=== PATIENT | female | born 1955 | race Caucasian/White ===

== ENCOUNTER → 2017-03-29 | Outpatient (CLI) | payer OTHER ==
[~2017-03-29] MED LIST: ASPIRIN EC325 M1 PO; ASPIRIN81 M2 PO; HYDROCODONE-AP1 EAC6 PO; IMDUR 30 MG TAB30 M1 PO; LISINOPRIL-HCT1 EAC1 PO; METOPROLOL SUCC25 M1 PO; MOBIC15 MG PO; OMEPRAZOLE 20 M20 M1; OMEPRAZOLE40 MG PO; PRAVACHOL40 MG PO; PRAVASTATIN SOD20 MG PO; PROVENTIL HFA6.7 G1; ZESTORETIC 20-1 EAC3 PO
== END ==
LOC: M.MRI 08:20
DX: D35.02 Benign neoplasm of left adrenal gland (principal); K44.9 Diaphragmatic hernia without obstruction or gangrene; M47.896 Other spondylosis, lumbar region; M41.86 Other forms of scoliosis, lumbar region

== ENCOUNTER → 2017-04-13 | Day surgery (SDC) | payer OTHER ==
[2017-04-11 15:12] LABS: HEMATOCRIT 43.5 % (37.0-47.0); MCHC 34.4 g/dL (28.0-37.0); MCV 92.9 fL (80.0-100.0); MPV 8.4 fl. (7.2-11.1); RBC 4.68 mil/uL (4.20-5.00); RDW-CV 13.5 % (10.5-14.5); WBC 7.4 thou/uL (4.0-11.0)
[2017-04-11 15:40] LABS: CALCIUM 9.3 mg/dL (8.5-10.1); CREATININE 0.9 mg/dL (0.6-1.3); POTASSIUM 4.8 mmol/L (3.5-5.1)
[2017-04-11 15:45] LABS: ALBUMIN 3.8 g/dL (3.4-5.0); TOTAL BILIRUBIN 0.3 mg/dL (<0.1-1.0); TOTAL PROTEIN 7.7 g/dL (6.4-8.2)
--- NOTE | 2017-04-14 13:16 | OP ---
[address] [address] OPERATIVE REPORT Name: HI ENCISO Room: [facility]#: [id number] Admission: 04/13/17 Attend Phys: Phuong Hopkins DO Discharge: Date of : 59 Report #: [id number] THIS REPORT FOR: //name// CC: Phuong VINCENTRYAN ECKERTAN DATE OF SERVICE: 04/13/2017 PREPROCEDURE DIAGNOSIS: Right inguinal hernia. POSTPROCEDURE DIAGNOSIS: Right direct inguinal hernia. FINDINGS: A very large right direct inguinal hernia containing fat. There was a tiny indirect inguinal hernia as well. SURGEON: Phuong Hopkins DO COSURGEON: Giovani Cancino, PGY2. BILLING COORDINATOR: Jeff Ocasio PGY1 PROCEDURE PERFORMED: Right direct inguinal hernia repair with mesh. ANESTHESIA: General LMA and local. ESTIMATED BLOOD LOSS: 2. DRAINS: None. SPECIMENS: None. COMPLICATIONS: None. CONDITION: Stable. DISPOSITION: PACU to home. HISTORY OF PRESENT ILLNESS: The patient is a very pleasant 61-year-old female who presented to my office with a complaint of an increasing bulge and pain in the right lower quadrant. She had undergone a CT scan, which was positive for a right inguinal hernia, which was also evident on her exam. She was then consented for a right inguinal hernia repair with mesh. Risks discussed included bleeding, infection, pain, scar formation, injury to bowel or bladder, recurrence of the hernia, mesh complications, requiring explantation and risks of general anesthesia. The patient understood these risks [place] [address] OPERATIVE REPORT Name: HI ENCISO Room: [facility].#: [id number] Admission: 04/13/17 Attend Phys: Phuong Hopkins DO Discharge: Date of : 59 Report #: [id number] PROCEDURE NOTE: The patient was brought to the operating room. She was laid supine on the operating room table. SCDs were placed to bilateral lower extremities. Ancef was given in the perioperative period. General LMA anesthesia was induced by anesthesia without difficulty. Abdomen was prepped and draped in standard sterile fashion. Time-out was performed to verify patient and procedure. We began by marking out the right ASIS and the right pubic tubercle. An incision was marked out between these two structures. 10 mL of 0.5% Marcaine were injected in the area. Incision was made with #15 blade. Cautery was used for hemostasis. Then, using a combination of blunt and cautery dissection, we dissected down until the external abdominal oblique fascia was identified. One vein was identified during our dissection, was doubly clamped and ligated using a 3-0 silk suture. Yianer retractor was placed. The external abdominal oblique was tented between two Christiane clamps and was incised carefully using Metzenbaums taking care to avoid any underlying structures. Then, using very gentle blunt finger dissection, the inferior surface of the external abdominal oblique was cleared of any underlying structures until we reached the pubic tubercle. Pubic tubercle was then cleared of any tissue. We did encounter a very large hernia sac, which appeared to contain incarcerated fat. The fat was cleared away from the round ligament. Round ligament was then doubly clamped and ligated using 0 silk sutures. It was then allowed to fall into the abdomen. A very tiny indirect inguinal hernia containing only a small amount of fat was identified and was easily reintroduced into the abdomen. The remainder of the very large inguinal hernia appeared to be a large direct defect. Once the adhesions were cleared away, it was then able to be completely reduced into the abdomen without difficulty. Of note, the genital branch of genitofemoral nerve was identified and was carefully protected during our dissection. Once the entirety of the hernia sac was reintroduced into the abdomen, the hernia defect was closely inspected, appeared to be approximately 2 x 2 cm, then decided to close this using a Prolene stitch. The hernia defect was closed using 2 interrupted ahrlwi-co-hjvrq stitches of 0 Prolene with excellent approximation of the hernia defect and no further bulging identified. Remainder of the floor of the inguinal canal was carefully inspected, there were no other defects identified. A ProGrip mesh was then brought onto the field, it was cut to fit the floor of the inguinal canal, it was then deployed along the pubic tubercle. It was placed to cover the entirety of the inguinal canal with excellent coverage. Care was taken to avoid our previously identified nerve. The external abdominal oblique fascia was then closed in a running fashion utilizing a 3-0 Vicryl. An additional 10 mL of 0.5% Marcaine were injected in the pubic tubercle and an additional 10 mL along the surface of the external abdominal oblique. The wound was then closed in a layered fashion beginning with Feliberto's fascia, then in deep and superficial fashion using multiple interrupted stitches of 3-0 Vicryl in inverted interrupted fashion. Skin was closed with running 4-0 Monocryl. An additional 10 mL of 0.5% Marcaine were injected in the skin and the last 10 mL were injected one fingerbreadth in front of the [place] [address] OPERATIVE REPORT Name: HI ENCISO Room: [facility]#: [id number] Admission: 04/13/17 Attend Phys: Phuong Hopkins DO Discharge: Date of : 59 Report #: [id number] type fashion. Skin was then cleansed and covered with Mastisol, Steri-Strips, 4 x 4's, and a Tegaderm. The patient was then allowed to awaken from anesthesia, was extubated and transferred to the recovery room with no further difficulties. Counts were correct at the conclusion of the case. Binder was placed in the operating room. <ELECTRONICALLY SIGNED> By: Phuong Hopkins DO 04/14/17 1316 1500 [id number] Hopkins DO /nt
== END | disposition home or self-care (01) ==
LOC: M.SUR 09:23
PROVIDERS: Surgery
DX: K40.90 Unilateral inguinal hernia, without obstruction or gangrene, not specified as recurrent (principal)

== ENCOUNTER → 2018-01-16 | Outpatient (CLI) | payer OTHER ==
--- NOTE | 2018-01-16 11:30 | 2DMMODE ---
[place] [address] 2 D/M-MODE ECHOCARDIOGRAM Name: FERNIEHI Malcom Room: [facility]#: [id number] Admission: 01/16/18 Attend Phys: Mak Boudreaux, Discharge: Date of : 59 Date of Service: 01/16/18 1130 Report #: [id number] THIS REPORT FOR: //name// APPROVED REPORT Study performed: 01/16/2018 10:19:00 EXAM: Comprehensive 2D, Doppler, and color-flow Echocardiogram Patient Location: Out-Patient Status: routine BSA: 2.10 HR: 65 bpm BP: 154/75 mmHg Other Information Study Quality: Fair Indications Aortic Valve Disease Aortic Valve replacement 2D Dimensions IVSd: 11.16 (7-11mm) LVOT Diam: 20.27 (18-24mm) LVDd: 54.11 mm PWd: 9.88 (7-11mm) Ascending Ao: 24.89 (22-36mm) LVDs: 33.53 (25-40mm) Aortic Root: 24.08 mm Volumes Left Atrial Volume (Systole) LA ESV Index: 13.90 mL/m2 Aortic Valve AoV Peak Keon.: 2.76 m/s AO Peak Gr.: 30.45 mmHg LVOT Max P.73 mmHg AO Mean Gr.: 15.81 mmHg LVOT Mean P.40 mmHg LVOT Max V: 1.09 m/s AO V2 VTI: 44.64 cm LVOT Mean V: 0.72 m/s ANIBAL (VTI): 1.29 cm2 LVOT V1 VTI: 17.81 cm Mitral Valve E/A Ratio: 0.70 MV Decel. Time: 285.93 ms MV E Max Keon.: 0.57 m/[place] [address] 2 D/M-MODE ECHOCARDIOGRAM Name: HI ENCISO Room: [facility]#: [id number] Admission: 01/16/18 Attend Phys: Mak Boudreaux, Discharge: Date of : 59 Date of Service: 01/16/18 1130 Report #: [id number] MV PHT: 82.92 ms MVA (PHT): 2.65 cm2 TDI E/Lateral E': 5.70 E/Medial E': 7.13 Medial E' Keon.: 0.08 m/s Lateral E' Keon.: 0.10 m/s Pulmonary Valve PV Peak Keon.: 1.28 m/s PV Peak Gr.: 6.50 mmHg Left Ventricle The left ventricle is normal size. There is normal LV segmental wall motion. There is normal left ventricular wall thickness. Left ventricular systolic function is normal. The left ventricular ejection fraction is within the normal range. LVEF is 60-65%. Grade I - abnormal relaxation pattern. Right Ventricle The right ventricle is normal size. The right ventricular systolic function is normal. Atria Left atrium is mildly dilated. The right atrium size is normal. Aortic Valve Bioprosthetic aortic valve is present. No aortic regurgitation is present. Very Mild aortic stenosis.mean gradient 15mmHg (unchanged from 2017) Mitral Valve Mild mitral annular calcification. There is no mitral valve regurgitation noted. No evidence of mitral valve stenosis. Tricuspid Valve The tricuspid valve is normal in structure. There is no tricuspid valve regurgitation noted. Pulmonic Valve The pulmonary valve is normal in structure. There is no pulmonic valvular regurgitation. Great Vessels The aortic root is normal in size. IVC is normal in size and collapses >50% [place] [address] 2 D/M-MODE ECHOCARDIOGRAM Name: HI ENCISO Room: [facility]#: [id number] Admission: 01/16/18 Attend Phys: Mak Boudreaux, Discharge: Date of : 59 Date of Service: 01/16/18 1130 Report #: [id number] Pericardium There is no pericardial effusion. <Conclusion> LVEF is 60-65%. Grade I - abnormal relaxation pattern. There is normal LV segmental wall motion. Left atrium is mildly dilated. Bioprosthetic aortic valve is present. Very Mild aortic stenosis.mean gradient 15mmHg (unchanged from 2017) No aortic regurgitation is present. No evidence of mitral valve stenosis. <ELECTRONICALLY SIGNED> By: Mak Boudreaux MD, FACC 01/16/18 1130 1130 1130 Mak Boudreaux MD, FACC /INF
--- NOTE | 2018-01-19 12:46 | PF ---
[address] [address] PULMONARY FUNCTION REPORT Name: HI ENCISO Room: [facility]#: [id number] Admission: 01/16/18 Attend Phys: Mak Boudreaux MD Discharge: Date of : 59 Report #: [id number] THIS REPORT FOR: //name// CC: LISBET Boudreaux DATE OF SERVICE: 01/16/2018 REQUESTING PHYSICIAN: Dr. Boudreaux. Spirometry reveals a normal FEV1 at 2.31, FVC is 3.35. FEV1/FVC ratio is 69%. Mid flows were mildly decreased. There was no significant change seen in the FEV1 after inhaled bronchodilator. However, mid flows did improve by 29%. No lung volumes were obtained. Diffusion capacity was mildly decreased. IMPRESSION: Spirometry reveals evidence of a mild obstructive process. There is some improvement seen at the level of the small airways after inhaled bronchodilators. <ELECTRONICALLY SIGNED> By: Katharina Luque MD 01/19/18 1246 0926 [id number] Luque MD /nt
--- NOTE | 2018-01-23 08:50 | PF ---
[address] [address] PULMONARY FUNCTION REPORT Name: FERNIEHI العراقي Room: [facility]#: [id number] Admission: 01/16/18 Attend Phys: Mak Boudreaux MD Discharge: Date of : 59 Report #: [id number] THIS REPORT FOR: //name// CC: LISBET Boudreaux DATE OF SERVICE: 01/16/2018 This is reinterpretation of full pulmonary function studies done. The data originally presented to me was lacking the lung volumes obtained by plethysmography. As noted previously, spirometry was normal with an FEV1 of 2.31 with an FVC of 3.35. The FEV1/FVC ratio is 69%. Mid flows were mildly decreased. After inhaled bronchodilator, there was no significant change seen in the FEV1. However, mid flows did improve by 29%. Lung volumes by plethysmography reveal mild increase in total lung capacity to 128% of predicted. Residual volume was increased. Diffusion capacity was mildly decreased. IMPRESSION: These studies are consistent with a mild obstructive process. There was evidence of air trapping and hyperinflation. There was some improvement after inhaled bronchodilator seen primarily at the level of the small airways. <ELECTRONICALLY SIGNED> By: Katharina Luque MD 01/23/18 0850 1403 [id number] Luque MD /drea
== END ==
LOC: M.PUL 12-28 12:41
DX: I65.22 Occlusion and stenosis of left carotid artery (principal); R06.09 Other forms of dyspnea; Z95.2 Presence of prosthetic heart valve

== ENCOUNTER 2018-07-01 11:23 | Emergency (ER) | payer OTHER ==
[~2018-07-01] VITALS: Ht 162.6 cm; Wt 99.8 kg
[2018-07-01] MEDS ORDERED: SERTRALINE HCL50 MG PO (11:33)
[2018-07-01 11:58] LABS: ABSOLUTE LYMPHOCYTES 2.3 thou/uL (0.8-5.3); LYMPHOCYTES 23.9 %; NUCLEATED RBCS 0 /100WBC; RDW-CV 14.2 % (10.5-14.5)
[2018-07-01 11:59] LABS: ABSOLUTE MONOCYTES 0.4 thou/uL (0.0-1.2); ABSOLUTE NEUTROPHILS 6.9 thou/uL (1.6-8.1); BASOPHILS 0.5 %; EOSINOPHILS 0.3 %; HEMATOCRIT 43.5 % (37.0-47.0); HEMOGLOBIN 15.1 gm/dL (12.0-15.0); MCH 31.9 pg (26.0-34.0); MCHC 34.7 g/dL (28.0-37.0); MCV 91.9 fL (80.0-100.0); MONOCYTES 4.2 %; MPV 9.1 fl. (7.2-11.1); PLATELET COUNT* 213 thou/uL (150-400); POLYS 71.1 %; RBC 4.73 mil/uL (4.20-5.00); WBC 9.7 thou/uL (4.0-11.0)
[2018-07-01 12:16] LABS: ALBUMIN 3.7 g/dL (3.4-5.0); CALCIUM 9.6 mg/dL (8.5-10.1); CREATININE 1.2 mg/dL (0.6-1.3); POTASSIUM 3.7 mmol/L (3.5-5.1); TOTAL BILIRUBIN 0.4 mg/dL (<0.1-1.0); TOTAL PROTEIN 8.1 g/dL (6.4-8.2)
[2018-07-01] MEDS ORDERED: ONDANSETRON HCL4 M2 PO (13:36)
[2018-07-01] MEDS ORDERED: NORCO 5-325 TA1 EACH PO (13:36)
[2018-07-01 14:15] VITALS: BP 121/64
--- NOTE | 2018-07-02 12:52 | EKG ---
[place] [address] ELECTROCARDIOGRAM REPORT Name: HI ENCISO Room: [facility]#: [id number] Admission: 07/01/18 Attend Phys: Discharge: 07/01/18 Date of : 59 Report #: [id number] THIS REPORT FOR: //name// [facility] ED Test Date: 2018-07-01 Test Time: 12:05:22 Pat Name: HI ENCISO Department: Room: Gender: F Operations Administrative Assistant: CESAR : 1955 Requested By: Aracely Moreno Order Number: [id number] MD: Dustin Cedeño Measurements Intervals [place] Rate: 86 P: -23 KS: 187 QRS: 49 QRSD: 93 T: 29 QT: 370 QTc: 443 Interpretive Statements Sinus rhythm Compared to ECG 12/06/2016 11:38:33 Ventricular premature complex(es) no longer present Electronically Signed On 07-02-2018 12:52:36 CDT by Dustin Cedeño [email or web address] <ELECTRONICALLY SIGNED> By: Dustin Cedeño MD, [facility] 07/02/18 1252 1205 1205 Dustin Cedeño MD, [facility] /EPI
== END 2018-07-01 14:18 | disposition home or self-care (01) ==
LOC: M.ERS 11:23
PROVIDERS: Physician Assistant
DX: K44.9 Diaphragmatic hernia without obstruction or gangrene (principal); R11.2 Nausea with vomiting, unspecified; I10 Essential (primary) hypertension; F17.210 Nicotine dependence, cigarettes, uncomplicated; Z98.890 Other specified postprocedural states